=== PATIENT | female | born 1975 | race Caucasian/White ===

== ENCOUNTER → 2020-10-30 09:20 | Outpatient (CLI) | payer OTHER, SELFPAY ==
[2020-10-30 18:57] LABS: SARS-CoV-2 RNA PCR Negative
== END ==
PROVIDERS: PCP Family Medicine; Visit Provider Physician Assistant
DX: R05 Cough (principal); Z20.822 Contact with and (suspected) exposure to COVID-19
CPT/HCPCS: C9803; U0003; U0005

== ENCOUNTER 2024-08-30 08:22 | Outpatient (CLI) | payer OTHER, SELFPAY ==
--- NOTE | ~2024-08-30 | MM_ITS ---
EXAMINATION: MM screening aneudy BI w jesus HISTORY: Screening mammogram TECHNIQUE: Craniocaudal and mediolateral oblique 3-D tomosynthesis images were obtained and synthetic 2-D images were generated. CAD analysis was submitted and interpreted. COMPARISON: No prior mammogram is available for comparison at this institution. BREAST PARENCHYMAL COMPOSITION:Dense: The breasts are heterogeneously dense, which may obscure small masses. FINDINGS: No suspicious mass, calcification, or architectural distortion are identified in either magalys ast to suggest malignancy. There has been no suspicious interval change. IMPRESSION: No mammographic evidence of malignancy. Recommend routine screening mammography in one year. BI-RADS Category 1: Negative Reviewed, dictated and finalized at location .
--- OUTSIDE RECORDS SUMMARY | 2024-08-30 08:29 | XMS_ITS | Clinical Summary ---
Author Organization [address] Address [address] [place] [address] Care Team Providers Care Small Animal Caretaker Name Role Phone Masood Jhaveri MD Primary Care Provider [phone] Allergies No known active allergies Medications SUMAtriptan (IMITREX) 50 mg tabletIndications :Migraine Take 1 tablet (50 mg total) by mouth once as needed for migraine May repeat after 2 hours. 27 tablet 4 024 Active estradioL (VIVELLE-DOT) 0.05 mg/24 hr APPLY 1 PATCH TOPICALLY TWICE A WEEK 024 Active progesterone (PROMETRIUM) 200 mg capsule Take 1 capsule (200 mg total) by mouth daily 025 Active azelastine (OPTIVAR) 0.05 % ophthalmic solutionIndicatio ns:Allergic Conjunctivitis Administer 1 drop into both eyes 2 (two) times a day 6 mL 1 025 Active Additional Information Patient not taking.Reported on 08/13/2024 venlafaxine XR (EFFEXOR-XR) 75 mg 24 hr capsule Take 1 capsule (75 mg total) by mouth daily Take with food. 90 capsule 4 025 2025 Active topiramate (TOPAMAX) 25 mg tabletIndications :Hemiplegic migraine without status migrainosus, not intractable Take 2 tablets (50 mg total) by mouth daily 180 tablet 3 025 2024 Discontinued Active Problems Problem Noted Date Diagnosed Date Acute bilateral low back pain without sciatica 0 04/15/2024 Assessment & Plan (04/15/2024 2:59 PM LIFE SKILLS INSTRUCTOR): Patient reports some low back pain; started after playing pickleball; patient also reports increased physical activity including high-intensity activities Patient reports symptoms are intermittent, but has some numbness and weakness in right leg occasional episodes of left leg Physical exam generally normal except for changes and tandem gait Would recommend continued home exercises including stretching; if no improvement, will evaluate for need for imaging and possible physical Trauma in childhood 08/28/2023 Assessment & Plan (10/31/2023 9:00 AM CDT): Has been working with a counselor Has been getting relief with counseling Has been continuing to work through childhood trauma Assessment & Plan (08/28/2023 9:08 AM CDT): Has unresolved trauma from childhood States she had constant trauma from 0-10 Using food as a comfort Discussed speaking with counselor; gave list of counselors Will have AZIZA Santiago reach out to patient Perimenopause 09/12/2022 Assessment & Plan (08/13/2024 4:30 PM CDT): Stable, has some perimenopausal symptoms; follows with gynecology for management of hormone replacement therapy Assessment & Plan (09/12/2022 4:33 PM CDT): Patient reports perimenopausal symptoms started about 4-5 months ago; primary symptom has been increased nausea Menstrual cycle stopped about 4-5 months ago; patient following with OB Gyne for management Menstrual migraine without s tatus migrainosus, not intractable 09/01/2021 Assessment & Plan (08/13/2024 4:30 PM CDT): Not well controlled; continues to have regular headaches; patient reports some brain fog, fatigue, worse since starting topiramate Will discontinue topiramate; start venlafaxine 75 mg daily; reassess in 2 months Assessment & Plan (04/15/2024 2:59 PM LIFE SKILLS INSTRUCTOR): Stable, generally well controlled with current medication, continue HRT Continue sumatriptan 50 mg p.r.n., Topamax 25 mg Assessment & Plan (09/12/2022 4:32 PM CDT): Stable, well controlled; patient reports no migraines since starting menopause 4-5 months ago Continue to monitor, no medications needed at this time Assessment & Plan (04/15/2022 1:04 PM LIFE SKILLS INSTRUCTOR): Continues to have migraines with Los menstrual cycles; no relief with Excedrin Start sumatriptan 25 mg p.r.n. Assessment & Plan (09/01/2021 8:31 AM CDT): New onset, may be related to dietary changes (low carbohydrate) vs hormone induced -will give trial of increasing carbohydrates prior to menstrual cycle -Excedrin Migraine prior to menstrual cycle Class 1 obesity due to exces s calories without serious comorbidity with body mass index (BMI) of 32.0 to 32.9 in adult 03/04/2021 Assessment & Plan (08/13/2024 4:30 PM CDT): Stable, no major changes; encourage regular physical activity; patient reports some fatigue, may be side effects from medication Will adjust medications Patient is counseled to work on weight loss through dietary and activity changes. Patient is encouraged to decrease caloric intake through portion control, choosing lower calorie foods, and targeting 5-6 servings of vegetables and fruit per day. Patient is encouraged to maintain or target a minimum of 30 minutes moderate intensity exercise 5 days per week. Assessment & Plan (05/21/2024 9:19 PM CDT): Generally stable, no major changes, encouraged continued management of weight through diet and physical activity Assessment & Plan (09/12/2022 4:33 PM CDT): Well controlled, improving; patient continues to work on weight loss; following healthy diet plan; exercising, high-intensity training 3 times per week Assessment & Plan (09/01/2021 8:32 AM CDT): Improving, patient has been working dietary changes, watching portions and carbohydrate intake -continue to encourage appropriate dietary and activity changes for health Assessment & Plan (03/04/2021 2:02 PM LIFE SKILLS INSTRUCTOR): Stable, improving; patient reports she is generally active, working on dietary changes to continue with weight loss; has had significant weight loss in the past year Encouraged patient to continue with general exercise focusing on low-impact exercises given excess weight; will continue to monitor symptoms of left hip pain as well as numbness in length, hip pain may be due to excessive stress verses labral tear If pain continues after weight loss, or worsens will re-evaluate and get MRI Left hip pain 03/03/2021 Assessment & Plan (09/01/2021 8:31 AM CDT): Stable, improving Assessment & Plan (03/04/2021 2:02 PM LIFE SKILLS INSTRUCTOR): Unclear etiology; may be labral tear verses arthritis versus muscle strain from overuse injuries Will continue to monitor if pain worsens or does not respond to weight loss, would consider getting x-ray and MRI as necessary Abnormal glucose tolerance test (GTT) 07/06/2013 Assessment & Plan (09/12/2022 4:34 PM CDT): Most recent glucose tolerance was within normal limits Vitamin B-complex deficiency 07/06/2013 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 Assessment & Plan (05/21/2024 9:19 PM CDT): Continues to have headaches, even with hormone therapies; will increase topiramate to 50 mg daily; may consider venlafaxine as alternatives given perimenopausal symptom relief Continue topiramate 50 mg daily, sumatriptan 50 mg p.r.n.; follow-up with Obstetrics Gynecology for management of hormone therapy Assessment & Plan (10/31/2023 9:04 AM CDT): Chronic, stable Getting relief with topiramate Assessment & Plan (08/28/2023 9:06 AM CDT): Chronic, not well controlled Continues to have at least 1 migraine per week; taking 12 Imitrex a month Is working on mitigating stressors Start Topiramate 25 mg daily; continue Imitrex as needed Follow up 2 months Assessment & Plan (05/31/2023 1:03 PM CDT): Not well controlled; increased in frequency; no getting about 4 per month May be caused by stressors No major side effects from medication Continue sumatriptan 50 mg p.r.n. for headaches Iron deficiency anemia 07/06/2013 Assessment & Plan (05/21/2024 9:19 PM CDT): Last labs within normal limits; will continue to monitor CBC and iron profile Assessment & Plan (09/12/2022 4:33 PM CDT): Well controlled, most recent CBC demonstrated normal H&H, MCV and normal range with low MCH Continue to monitor given no longer having menstrual cycles, likely will not need iron supplementation Assessment & Plan (09/01/2021 8:32 AM CDT): Low normal Hgb, low MCV; will recheck CBC today to ensure not worsening premenstrual symptoms -contiune multivitamin with iron Encounters Date Type Department Care Team Description 08/13/2024 9:00 AM CDT Office Visit [facility] [address] [place] [address] Masood Jhaveri MD Menstrual migraine without status migrainosus, not intractable (Primary Dx); Colon cancer screening; Encounter for screening mammogram for malignant neoplasm of breast; Class 1 obesity due to excess calories without serious comorbidity with body mass index (BMI) of 32.0 to 32.9 in adult; Perimenopause 08/13/2024 Results [facility]-Up [facility] [address] [phone] Masood Jhaveri MD Lipid panel, CBC with auto differential, Comprehensive metabolic panel, Additional followed-up results: 2 08/07/2024 8:25 AM CDT Lab [facility] [address] [place] [address] Iron deficiency anemia due to chronic blood loss 06/14/2024 3:45 PM CDT Office Visit [facility] Primary Care at [address] [phone] Masood Jhaveri MD Allergic conjunctivitis of both eyes (Primary Dx) from Last 3 Months Immunizations Immunization Administration Dates Next Due Influenza, Unspecified 05/12/2024(Deferr ed: Patient Refused),10/26/2023(Deferred: Patient Refused),05/24/2023(Deferred: Patient Refused),12/22/2022(Deferred: Patient Refused),12/07/2022(Deferred: Patient Refused),11/20/2022(Deferred: Patient Refused),10/21/2022(Deferred: Patient Refused),11/20/2021(Deferred: Patient Refused),03/03/2021(Deferred: Patient Refused),02/21/2020(Deferred: Patient Refused) Surgical History Surgery Date Site/Laterality Comments ENDOMETRIAL ABLATION 02/20/2009 - 02/19/2010 SECTION 02/20/2001 - 02/19/2002 SECTION 02/20/1999 - 02/20/2000 SECTION 02/20/1997 - 02/19/1998 Medical History Medical History Date Comments No pertinent past medical history Arthritis 03/2017 Family History Medical History Relation Name Comments Liver cancer Father Lung cancer Father Mental illness Mother Salina Tadeo No Known Problems Sister Relation Name Status Comments Father (Age 75) Mother Salina Tadeo Other Sister Alive Social History Tobacco Use Types Packs/Day Years Used Date Smoking Tobacco: Never Smokeless Tobacco: Never Tobacco Cessation:Counseling Given: Not Answered Alcohol Use Standard Drinks/Week Comments No 0 (1 standard drink = 0.6 oz pur e alcohol) AUDIT-C Answer Date Recorded Q1: How often do you have a drink containing alc ohol? Never 03/03/2021 Average Number of Drinks Not on file 022 Q3: How often do you have si x or more drinks on one occasion? Never 03/03/2021 PHQ-2 Answer Date Recorded PHQ-2 Total Score (If total score is 3 or more points, staff should administer the PHQ-9) 0 08/13/2024 Comments No Sex and Gender Information Value Date Recorded Sex Assigned at Not on file Legal Sex Female 7:25 PM LIFE SKILLS INSTRUCTOR Gender Identity Not on file Sexual Orientation Not on file Obstetrics History Para Term AB IAB SAB Ectopic Multiple Livin g Live Births 3 3 3 Date Outcome GA Total Labor Labor/2nd/3rd Weight Sex Type Anes PTL Gisel A1 A5 Name Clin Term Term Term Last Filed Vital Signs Vital Sign Reading Time Taken Comments Blood Pressure 120/80 08/13/2024 8:46 AM CDT Pulse 68 08/13/2024 8:46 AM CDT Temperature 36.6 C (97.9 F) 08/13/2024 8:46 AM CDT Respiratory Rate 18 08/13/2024 8:46 AM CDT Oxygen Saturation 98% 08/13/2024 8:46 AM CDT Inhaled Oxygen Concentration - - Weight 99.3 kg (219 lb) 08/13/2024 8:46 AM CDT Height 170.2 cm (5' 7) 08/13/2024 8:46 AM CDT Body Mass Index 34.3 08/13/2024 8:46 AM CDT Plan of Treatment Health Maintenance Due Date Last Done Comments Cervical Cancer Screening 1975 Colon Cancer Screening-DNA Stool 1975 08/22/2024 DTaP/Tdap/Td Vaccine (1 - Tdap) 10/22/1986 Regular Well Visit/Exam 18-64 10/22/1993 Breast Cancer Screening-Mammogram 09/08/2022 09/08/2021 Covid-19 Vaccine ( season) 2023 06/09/2020, 05/19/2020 Influenza Vaccine (Season Ended) 2024 Depression Screening 08/13/2025 08/13/2024, 10/31/2023, 08/28/2023, Additional history exists Hepatitis B Screening Completed 08/22/2023 Hepatitis C Screening Completed 08/22/2023 Pneumococcal vaccine <65 Aged Out No longer eligible based on patient's age to complete this topic Procedures Procedure Name Priority Date/Time Associated Diagnosis Comments STOOL DNA COLOGUARD Routine 08/22/2024 6:44 AM CDT Colon cancer screening EGFR Routine 08/07/2024 8:38 AM CDT Iron deficiency anemia due to chronic blood loss DIFFERENTIAL AUTO Routine 08/07/2024 8:3 8 AM CDT Iron deficiency anemia due to chronic blood loss COMPREHENSIVE METABOLIC PANEL Routine 08/07/2024 8:38 AM CDT Iron deficiency anemia due to chronic blood loss CBC WITH AUTO DIFFERENTIAL Routine 08/07/2024 8:38 AM CDT Iron deficiency anemia due to chronic blood loss LIPID PANEL Routine 08/07/2024 8:38 AM CDT Iron deficiency anemia due to chronic blood loss HEPATITIS C ANTIBODY Routine 08/22/2023 8:34 AM CDT Encounter for hepatitis C screening test for low risk patient SCREENING MAMMOGRAM BILATERAL W AVINASH Schedule Routine, Read Routine (OP Routine) 09/08/2021 1:18 PM CDT Encounter for screening mammogram for malignant neoplasm of breast from Last 3 Months or Most Recently Relevant to Health Maintenance Results * Stool DNA - Cologuard (08/22/2024 6:44 AM CDT) Stool DNA - Cologuard Negative Negative [facility] (CLIA #:[id number]) Comment: The Cologuard (TM) test was performed on this specimen. NEGATIVE TEST RESULT. A negative Cologuard result indicates a low likelihood that a colorectal cancer (CRC) or advanced adenoma (adenomatous polyps with more advanced pre-malignant features) is present. The chance that a person with a negative Cologuard test has a colorectal cancer is less than 1 in 1500 (negative predictive value >99.9%) or has an advanced adenoma is less than 5.3% (negative predictive value 94.7%). These data are based on a prospective cross-sectional study of 10,000 individuals at average risk for colorectal cancer who were screened with both Cologuard and colonoscopy. (Duy Gutierrez al, N Engl J Med 2014;370(14):1286- 1297) The normal value (reference range) for this assay is negative. COLOGUARD RE-SCREENING RECOMMENDATION: Periodic colorectal cancer screening is an important part of preventive healthcare for asymptomatic individuals at average risk for colorectal cancer. Following a negative Cologuard result, the [place] [employer] and U.S. Multi-Society Task Force screening guidelines recommend a Cologuard re-screening interval of 3 years. References: [place] [employer] Guideline for Colorectal Cancer Screening: https://www.cancer.org/cancer/qefyd-kjaqug-nthdmg/rwfpollye-ljuncksna-pgrdqoi/ac s-rec ommendations.html.; Kana DK, Annie CR, Kristin MatosK, Colorectal Cancer Screening: Recommendations for Physicians and Patients from the U.S. Multi-Society Task Force on Colorectal Cancer Screening , Am J Gastroenterology 2017; 112:6860-4264. TEST DESCRIPTION: Composite algorithmic analysis of stool DNA-biomarkers with hemoglobin immunoassay. Quantitative values of individual biomarkers are not reportable and are not associated with individual biomarker result reference ranges. Cologuard is intended for colorectal cancer screening of adults of either sex, 45 years or older, who are at average-risk for colorectal cancer (CRC). Cologuard has been approved for use by the U.S. FDA. The performance of Cologuard was established in a cross sectional study of average-risk adults aged 50-84. Cologuard performance in patients ages 45 to 49 years was estimated by sub-group analysis of near-age groups. Colonoscopies performed for a positive result may find as the most clinically significant lesion: colorectal cancer [4.0%], advanced adenoma (including sessile serrated polyps greater than or equal to 1cm diameter) [20%] or non- advanced adenoma [31%]; or no colorectal neoplasia [45%]. These estimates are derived from a prospective cross-sectional screening study of 10,000 individuals at average risk for colorectal cancer who were screened with both Cologuard and colonoscopy. (Duy Gutierrez al, N Engl J Med 2014;370(14):3946-1110.) Cologuard may produce a false negative or false positive result (no colorectal cancer or precancerous polyp present at colonoscopy follow up). A negative Cologuard test result does not guarantee the absence of CRC or advanced adenoma (pre-cancer). The current Cologuard screening interval is every 3 years. ([place] [employer] and U.S. Multi-Society Task Force). Cologuard performance data in a 10,000 patient pivotal study using colonoscopy as the reference method can be accessed at the following location: www.[employer].com.com/results. Additional description of the Cologuard test process, warnings and precautions can be found at www.[facility].com. Stool 08/22/2024 6:44 AM CDT 08/24/2024 10:04 AM CDT us Masood Jhaveri MD LAB BODY FLUIDS AND STOOL S ORDERABLES Final Result [facility] (CLIA #:[id number]) [place] [address] * eGFR (08/07/2024 8:38 AM CDT) eGFR >90 >=60 mL/min/1. 73 m2 Comment: Interpretive Data Reference Interval Normal >/= 90 mL/min/1.73m2 Mildly decreased* 60 - 89 mL/min/1.73m2 Mildly to moderately decreased 45 - 59 mL/min/1.73m2 Moderately to severely decreased 30 - 44 mL/min/1.73m2 Severely decreased 15 - 29 mL/min/1.73m2 Kidney Failure < 15 mL/min/1.73m2 *Relative to young adult level Estimated glomerular filtration rate is determined by the 2020 CKD-EPI equation recommended by the National Kidney Foundation (A Unifying Approach to GFR Estimation: Recommendations of the NKF-ASK Task Force on Reassessing the Inclusion of Race in Diagnosing Kidney Disease, JASN 2020). The CKD-EPI equation should not be used for patients with unstable renal function and has not been validated in children and those over 70. Current interpretive data was last reviewed 2020. Testing performed by: [facility], [address] [place] [address], [place]., [address] Blood 08/07/2024 8:38 AM CDT 08/07/2024 3:56 PM CDT us Masood Jhaveri MD LAB BLOOD ORDERABLES Shaina alcaraz Result [facility] ([place]) 1 [facility] Department [place] [address] * Differential, auto (08/07/2024 8:38 AM CDT) Neutrophil abs 2.29 1.50 - 6.50 K/cumm Comment:Testing performed by : [facility], [address] [place] [address]., [address] Imm gran abs 0.01 0.00 - 0.10 K/cumm [facility] ([place]) Comment:Testing performed by : [facility], [address] [place] [address], [address] Lymphocyte abs 1.08 0.80 - 3.30 K/cumm [facility] ([place]) Comment:Testing performed by : [facility], [address] [place] [address]., [address] Monocyte abs 0.30 0.20 - 0.80 K/cumm [facility] ([place]) Comment:Testing performed by : [facility], [address] [place] [address]., [address] Eosinophil abs 0.14 0.00 - 0.50 K/cumm [facility] ([place]) Comment:Testing performed by : [address] [address] Basophil abs 0.04 0.00 - 0.10 K/cumm [facility] ([place]) Comment:Testing performed by : [address] [address] Neutrophil pct 59.3 % [facility] ([place]) Comment: Interpretive Data Percent cell count reference ranges are not reported, since discordance with absolute values may lead to misinterpretation of CBC data. Current Interpretive Data was last revised on 2017. Testing performed by: [address] [address] Imm gran pct 0.3 % [facility] ([place]) Comment: Interpretive Data Percent cell count reference ranges are not reported, since discordance with absolute values may lead to misinterpretation of CBC data. Current Interpretive Data was last revised on 2017. Testing performed by: [facility], [address] [place] [address]., [address] Lymphocyte pct 28.0 % [facility] ([place]) Comment: Interpretive Data Percent cell count reference ranges are not reported, since discordance with absolute values may lead to misinterpretation of CBC data. Current Interpretive Data was last revised on 2017. Testing performed by: [facility], [address] [place] [address]., [address] Monocyte pct 7.8 % [facility] ([place]) Comment: Interpretive Data Percent cell count reference ranges are not reported, since discordance with absolute values may lead to misinterpretation of CBC data. Current Interpretive Data was last revised on 2017. Testing performed by: [facility], [address] [place] [address]., [address] Eosinophil pct 3.6 % [facility] (YUAN) Comment: Interpretive Data Percent cell count reference ranges are not reported, since discordance with absolute values may lead to misinterpretation of CBC data. Current Interpretive Data was last revised on 2017. Testing performed by: [facility], [address] [place] [address]., [address] Basophil pct 1.0 % [facility] ([place]AN) Comment: Interpretive Data Percent cell count reference ranges are not reported, since discordance with absolute values may lead to misinterpretation of CBC data. Current Interpretive Data was last revised on 2017. Testing performed by: [address] [id number] Blood 08/07/2024 8:38 AM CDT 08/07/2024 3:46 PM CDT us Masood Jhaveri MD LAB BLOOD ORDERABLES Shaina alcaraz Result [facility] ([place]) 1 [facility] Department [place] [address] * (ABNORMAL) CBC with auto differential (08/07/2024 8:38 AM CDT) WBC 3.86 3.80 - 9.90 K/cumm Comment:Testing performed by : [facility], [address] [place] [address], [address] Hgb 13.4 11.9 - 15.5 g/dL [facility] ([place]) Comment:Testing performed by : [facility], [address] [place] [address], [address] Hct 43.5 35.6 - 45.5 % [facility] ([place]) Comment:Testing performed by : [facility], [address] [place] [address], [address] Plt 216 150 - 400 K/cumm [facility] ([facility]) Comment:Testing performed by : [address], [address] MPV 11.4 9.1 - 12.3 fL [facility] ([facility]) Comment:Testing performed by : [address], [address] RBC 4.73 3.90 - 5.20 M/cumm [facility] ([place]) Comment:Testing performed by : [address], [address] MCV 92.0 81.3 - 96.4 fL [facility] ([place]) Comment:Testing performed by : [address], [address] MCH 28.3 27.1 - 33.3 pg [facility] ([place]) Comment:Testing performed by : [address], [address] MCHC 30.8(L) 32.3 - 35.7 g/dL [facility] ([place]) Comment:Testing performed by : [address], [address] RDW CV 15.5(H) 11.1 - 14.9 % [facility] ([place]) Comment:Testing performed by : [address], [address] RDW SD 52.8(H) 35.7 - 48.1 fL [facility] ([place]) Comment:Testing performed by : [address], [address] NRBC abs 0.00 0.00 - 0.01 K/cumm [facility] ([place]) Comment:Testing performed by : [facility], [address] [place] [address]., [address] Blood 08/07/2024 8:38 AM CDT 08/07/2024 3:46 PM CDT us Masood Jhaveri MD LAB BLOOD ORDERABLES Shaina lissa Result [facility] ([place]) 1 [facility] Department [place] [address] * Lipid panel (08/07/2024 8:38 AM CDT) Cholesterol 181 30 - 199 mg/dL Comment: Interpretive Data Ages < or = 19 years Acceptable: <170 mg/dL Borderline high: 170-199 mg/dL High: >or= 200 mg/dL Ages > or = 20 years Desirable: <200 mg/dL Borderline high: 200-239 mg/dL High: >or= 240 mg/dL Literature References: 1. Expert Panel on Integrated Guidelines for Cardiovascular Health and Risk Reduction in Children and Adolescents. Pediatrics 2011;128:S213 2. NCEP Expert Panel. Circulation 2004;110:227 Current Interpretive Data was last revised on 2017. Testing performed by: [facility], [address] [place] [address]., [address] Triglycerides 63 <=149 mg/dL [facility] ([place]) Comment: Interpretive Data Ages < or = 9 years Acceptable: <75 mg/dL Borderline high: 75-99 mg/dL High: >or= 100 mg/dL Ages 10 to 20 years Acceptable: <90 mg/dL Borderline high: 90-129 mg/dL High: >or= 130 mg/dL Ages > or = 20 years Desirable: <150 mg/dL Borderline high: 150-199 mg/dL High: 200-499 mg/dL Very high: >or= 499 mg/dL Literature References: 1. Expert Panel on Integrated Guidelines for Cardiovascular Health and Risk Reduction in Children and Adolescents. Pediatrics 2011;128:S213 2. NCEP Expert Panel. Circulation 2004;110:227 Current Interpretive Data was last revised on 2017. Testing performed by: [facility], [id number] [place] [address]., [id number] HDL 74 >=40 mg/dL WILLA Crane (YUAN) Comment: Interpretive Data Ages < or = 19 years Acceptable: >45 mg/dL Borderline low: 40-45 mg/dL Low: <40 mg/dL Ages > or = 20 years Desirable: >or= 60 mg/dL Low: <40 mg/dL Literature References: 1. Expert Panel on Integrated Guidelines for Cardiovascular Health and Risk Reduction in Children and Adolescents. Pediatrics 2011;128:S213 2. NCEP Expert Panel. Circulation 2004;110:227 Current Interpretive Data was last revised on 2017. Testing performed by: [facility], [address] [place] [address]., [address] LDL, calculated 95 <=129 mg/dL WILLA ERNANDEZ (YUAN) Comment: Interpretive Data Ages < or = 19 years Acceptable: <110 mg/dL Borderline high: 110-129 mg/dL High: >or= 130 mg/dL Ages > or = 20 years Optimal: <100 mg/dL Near optimal: 100-129 mg/dL Borderline high: 130-159 mg/dL High: >160 mg/dL Calculated using the Dariusz LDL-C estimating equation. This equation was implemented on 2023. Prior to this date LDL-C was estimated using the Friedewald equation. Literature References: 1. Expert Panel on Integrated Guidelines for Cardiovascular Health and Risk Reduction in Children and Adolescents. Pediatrics 2011;128:S213 2. NCEP Expert Panel. Circulation 2004;110:227 3. Dariusz Fitzgerald et al. KRISTA Cardiol. 2019June 20;5(5):540-548. doi: 10.1001/jamacardio.2020.0013 Current Interpretive Data was last revised on 2023. Testing performed by: [facility], [address] [place] [address]., [address] Non-HDL Cholesterol 107 mg/dL WILLA ERNANDEZ (YUAN) Comment: Interpretive Data Ages < or = 19 years Acceptable: <120 mg/dL Borderline high: 120-144 mg/dL High: >145 mg/dL Ages > or = 20 years When triglycerides are >200 mg/dL, Non-HDL cholesterol is a secondary target of therapy with treatment goals that are 30 mg/dL greater than the LDL cholesterol target. Literature References: 1. Expert Panel on Integrated Guidelines for Cardiovascular Health and Risk Reduction in Children and Adolescents. Pediatrics 2011;128:S213 2. NCEP Expert Panel. Circulation 2004;110:227 Current Interpretive Data was last revised on 2017. Testing performed by: [facility], [address] [place] [address]., [address] Chol/HDL ratio 2 [facility] (YUAN) Comment:Testing performed by : [address] [address] Blood 08/07/2024 8:38 AM CDT 08/07/2024 3:46 PM CDT Masood Jhaveri MD LAB BLOOD ORDERABLES Shaina alcaraz Result WILLA ERNANDEZ (YUAN) 1 [facility] Department [place] [address] * (ABNORMAL) Comprehensive metabolic panel (08/07/2024 8:38 AM CDT) Sodium 139 135 - 145 mmol/L Comment:Testing performed by : [address] [address] Potassium, pl 4.0 3.3 - 4.9 mmol/L [facility] (YUAN) Comment:Testing performed by : [address] [address] Chloride 107 97 - 110 mmol/L [facility] (YUAN) Comment:Testing performed by : [address] [address] CO2 23 22 - 32 mmol/L [facility] ([place]AN) Comment:Testing performed by : [address] [address] Anion gap 9 2 - 15 mmol/L [facility] (YUAN) Comment:Testing performed by : [address], [address] BUN 14 6 - 25 mg/dL [facility] ([place]UAN) Comment:Testing performed by : [address], [address] Creatinine 0.71 0.60 - 1.10 mg/dL [facility] ([place]UAN) Comment:Testing performed by : [address] [address] Glucose 87 70 - 199 mg/dL [facility] (YUAN) Comment: Interpretive Data Fasting glucose >/= 126 mg/dl is diagnostic for diabetes. Fasting is defined as no caloric intake for at least 8 hours. Fasting glucose between 100 mg/dl to 125 mg/dl is diagnostic of prediabetes. In a patient with classic symptoms of hyperglycemia or hyperglycemic crisis, a random glucose >/= 200 mg/dl is diagnostic for diabetes. In the absence of unequivocal hyperglycemia, results should be confirmed by repeat testing. The classification and Diagnosis of Diabetes Diabetes Care 2021; 46: S19-S40. Current interpretive data was last revised 2022. Testing performed by: [address], [address] Calcium 9.4 8.5 - 10.3 mg/dL [facility] ([place]UAN) Comment:Testing performed by : [address], [address] Bilirubin, total 0.3 0.1 - 1.2 mg/dL [facility] ([place]AN) Comment:Testing performed by : [address] [address] Protein, pl 7.0 6.5 - 8.5 g/dL [facility] (YUAN) Comment:Testing performed by : [address], [address] Albumin 4.3 3.5 - 5.0 g/dL [facility] ([place]AN) Comment:Testing performed by : [address], [address] Alk phos 39(L) 40 - 130 Units/L [facility] (YUAN) Comment:Testing performed by : [address], [address] ALT 34 7 - 45 Units/L [facility] (YUAN) Comment:Testing performed by : [address], [address] AST 28 10 - 45 Units/L [facility] (YUAN) Comment:Testing performed by : [address], [address] Blood 08/07/2024 8:38 AM CDT 08/07/2024 3:46 PM CDT us Masood Jhaveri MD LAB BLOOD ORDERABLES Shaina l Result Performing Organization Address City/[facility]/ZIP Co de Phone Number WILLA ERNANDEZ UVALDA) 1 [facility] [place] [address] * Hepatitis C antibody Blood (08/22/2023 8:34 AM CDT) Hep C Ab Nonreactive Nonreactive Comment: Interpretive Data Nonreactive: Antibodies to HCV not detected. Does NOT exclude the possibility of recent exposure to HCV. Equivocal: Equivocal for HCV antibodies. Supplemental molecular testing will be automatically performed to determine infection status in accordance with current CDC screening recommendations. Reactive: Positive for HCV antibodies. This may represent current or past HCV infection. Supplemental molecular testing will be automatically performed to determine current infection status in accordance with current CDC screening recommendations. Interpretive data was last revised on 2019. Testing performed by: [facility], [address] [place] [address]., [address] Blood 08/22/2023 8:34 AM CDT 08/22/2023 12:49 PM CDT us Jenni Arango NP LAB MICROBIOLOGY - GENERAL ORDER MARIELA Final Result Performing Organization Address [facility] Co de Phone Number WILLA [facility] UVALDA) [address] [place] [address] [place] [address] * Screening Mammogram Bilateral W Avinash (09/08/2021 1:18 PM CDT) Anatomical Region Laterality Modality Breast Bilateral Mammography 09/08/2021 1:27 PM CDT Impressions 09/08/2021 1:27 PM CDT There is no mammographic evidence of malignancy. A 1 year screening mammogram is recommended. BI-RADS: 1 - Negative. The patient has been or will be contacted. The patient will be entered into a reminder system with a target due date of 1 year for her next mammogram. Electronically signed by: PAGE Guerin 09/08/2021 1:27 PM CDT EXAMINATION: SCREENING MAMMOGRAM BILATERAL W AVINASH ORDERING HEALTHCARE PROVIDER: MASOOD JHAVERI HISTORY: Routine screening mammography. COMPARISON: This is patient's baseline mammogram. TECHNIQUE: CC and MLO views of both breasts were obtained with digital technique using digital breast tomosynthesis with C view. Computer aided detection was utilized. FINDINGS: DENSITY: The breasts are heterogeneously dense, which may obscure small masses. BREASTS: There is no suspicious finding either breast on mammogram. us Masood Jhaveri MD IMG MAMMO PROCEDURES Shaina l Result from Last 3 Months or Most Recently Relevant to Health Maintenance Insurance [facility] [id number] Care Teams Small Animal Caretaker Relationship Specialty Start Date End Date Masood Jhaveri MD [address] [place] [address] PCP - General 03/03/21
--- OUTSIDE RECORDS SUMMARY | 2024-08-30 08:29 | XMS_ITS | Data Portability ---
Author Organization [facility] Address [address] [place] [address] [place] [address] Care Team Providers Care Dental Office Assistant Name Role Phone JAIRON JHAVERI Primary Care Provider Assessment Encounter Date Assessment Date Assessment LastModified by Organization Details LastModified Time 06/08/2020 06/08/2020 Annual gynecological exam performed. Patient will come back in a year unless there are new symptoms. Not available 06/08/2020 10:09:02 08/16/2022 08/16/2022 Annual gynecological exam performed. Patient will come back in a year unless there are new symptoms. [email or web address] Not available 08/16/2022 09:48:11 Plan of Treatment Reminders Order Date Submit Date Provider Last Modified By Organization Details Last Modified Time Details Appointments [facility]OM[facility]-EST 2024 08:45A M AYAAN Neff Not available Not available Not available Lab None recorded. Referral None recorded. Procedures None recorded. Surgeries None recorded. Imaging MAMMO, screening , digital, bilateral 2024 025 [email or web address] [facility], [address], [place], [address], 05/01/2024 11:23:41 MAMMO, screening , digital, bilateral 2023 024 JOSEPH [facility], [address], [place], [address], 06/23/2024 05:01:36 Medication Orders Vivelle-D ot 0.05 mg/24 hr transderm al patch 2024 025 [facility], [place], [address], 03/13/2024 10:26:58 progester one micronize d 200 mg capsule 2024 025 [facility], [place], [address], 03/13/2024 10:26:59 progester one micronize d 200 mg capsule 2023 024 [facility] [address], [place], [address], 12/13/2023 10:30:17 Vivelle-D ot 0.05 mg/24 hr transderm al patch 2023 024 [facility] [address], [place], [address], 12/13/2023 10:30:16 Patient TargetsNo targets recorded. Patient InstructionsNo instructions recorded. Reason for Referral None Reported. 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 Order ing Locat ion: [place] [facility] Recei jeronimo: 06/09 1021 First Scree n: Shaziaa daisy ak, Olga ay, CT Speci men: Scree dayna Pap - Image d, Cervi x STATE MENT OF ADEQU ACY: Satis facto ry for evalu ation Trans forma tion zone compo nent prese nt FINAL DIAGN OSIS: Negat naomie for Intra epith elial Lesio n or Juan A mixon ignacio d by Rachel blackburn, Olga jauregui, CT on 2020 at 5:23 PM ----- ----- ----- ----- ----- ----- ----- ----- ----- ----- ----- ----- ----- ----- ----- ----- ----- ---- HPV RESUL TS: HPV mRNA E6/E7 : No HPV mRNA Detec william NOTE: This high risk HPV mRNA assay detec ts fourt een high- risk HPV types (16, 18, 31, 33, 35, 39, 45, 51, 52, 56, 58, 59, 66, 68) witho ut diffe renti ation . CHART ABLE COMME NT: Note: This speci men was revie wed by a Cytot echno logis t and/o r Patho logis t (as indic ated in this repor t) after evalu ation using the Thinp rep Imagi ng Syste m. CLINI STEPHANIE INFOR MATIO N: Menst rual Statu s: LMP (if appli cable ): Clini stephanie Histo ry/Pr eviou s Pap: Type of Neopl jeff (if appli cable ): Other Histo ry: Hormo nehal (if appli cable ): PAP EDUCA NERIS L NOTE: The Pap Test is a scree dayna test with an inher ent false negat naomie rate. Liqui d-bas e sampl ing may decre ase, but will not elimi gonzales, false negat naomie resul ts. A negat naomie resul t does not precl ude the prese nce and/o r devel opmen t of disea se, since the prese nce of abnor mal cells in the sampl e depen ds on the locat ion of the lesio n and sampl ing techn ique. Micah nued regul ar scree dayna is the best metho d of cance r preve ntion . If repor william cytol ogic findi ng do not corre late with physi stephanie and/o r histo rical findi ngs, furth er inves tigat ion is recom dmitry d, as per carson nted. Not Available [facility] (Lab) [address], [place], [address], 06/09/2020 19:31:29 Result Notes None recorded. Problems Name Problem SNOMED Code Status Onset Date Resolution Date Notes Provider Name and Address Organization Details Recorded Time Speciali zed medical examinat ion Completed 201406/08/2020 Gynecolo gical Examinat ion;Kenneth rded Elsewher e: No Locat ion: [facility] S ource: EHR Nsh Teacher gaviota: N Practi ce ID: 0001 Yariel lable Time: 03:00:00 PM Nan Buckner [facility] 10:24:58 Menstrua tion finding Completed 201406/08/2020 Excessiv e or frequent menstrua tion;Rec orded Elsewher e: No Locat ion: [facility] S ource: EHR Nsh Teacher gaviota: N Practi ce ID: 0001 Yariel lable Time: 08:15:00 AM Nan Buckner [facility] 10:24:[address] Concept Completed 201806/08/2020 Encntr for demographic analyst exam (general ) (routine ) w/o abn findings ;Recorde d Elsewher e: No Locat ion: [facility] S ource: EHR Nsh Teacher gaviota: N Practi ce ID: 0001 Yariel lable Time: 01:30:00 PM Nan grider [facility] 10:24:56 Obesity [id number] Completed 201406/08/2020 Obesity; Recorded Elsewher e: No Locat ion: [facility] S ource: EHR Nsh Teacher gaviota: N Practi ce ID: 0001 Yariel lable Time: 03:00:00 PM Nan grider [facility] 10:24:52 Screenin g for malignan t neoplasm of cervix Completed 201406/08/2020 Pap Smear;Pr actice ID: [id number] Nan Padillatz null, [facility] 10:24:54 Problem Notes None recorded. Procedures Surgical History Date Name Laterality Status Provider Name and Address Organization Details Recorded Time 12/13/19 24 Date of Last Pap Smear completed AZAR Lissy [facility] 03/13/2024 09:42:32 02/20/19 05 Endometrial Ablation completed Nan Buckner [facility] 06/07/2020 10:20:21 02/20/19 02 section completed Nanalix Buckner [facility] 06/07/2020 10:20:54 02/20/19 00 section completed [facility] 06/07/2020 10:20:46 02/20/18 98 section completed Nanalix Buckner [facility] 06/07/2020 10:20:39 Imaging Results None recorded. Procedure Notes None recorded. Medical Equipment None Reported. Allergies No known drug allergies Medications Name Sig Start Date Stop Date Status Note LastModified by Organization Details LastModified Time sumatriptan 25 mg tablet 08/16 completed Not Available Not Available Not Available sumatriptan 50 mg tablet TAKE ONE TABLET BY MOUTH AT ONSET OF MIGRAINE. IF SYMPTOMS PERSIST, A SECOND DOSE MAY BE TAKEN IN 2 HOURS. DO NOT EXCEED 2 DOSES IN A 24 HOUR PERIOD, UNLESS OTHERWISE INSTRUCTE D BY YOUR PHYSICIAN active Not Available Not Available No t Available topiramate 25 mg tablet TAKE 1 TABLET BY MOUTH ONCE DAILY active Not Available Not Available No t Available progesteron e micronized 200 mg capsule Take 1 capsule every day by oral route. 2024 active Not Available Not Available Not Avai lable Vivelle-Dot 0.05 mg/24 hr transdermal patch Apply 1 patch twice a week by transderm al route. 2024 active Not Available Not Available Not Avai lable fluticasone propionate 50 mcg/actuati on nasal spray,suspe nsion SHAKE LIQUID AND USE 2 SPRAYS IN EACH NOSTRIL DAILY 08/16 completed Not Available Not Available Not Available ciprofloxac in 0.3 %-dexametha sone 0.1 % ear drops,suspe nsion SHAKE LIQUID AND INSTILL 4 DROPS TO LEFT EAR TWICE DAILY 08/16 completed Not Available Not Available Not Available BinaxNOW COVID-19 Ag Self Test kit TEST DIRECTED TODAY 08/16 completed Not Available Not Available Not Available Vitals Date Recorded Body height Body mass index (BMI) Body weight Systolic And Diastolic Provider Name and Address Organization Details Last Updated DateTime 03/13/2024 167.64 cm 35 kg/m2 01496.54 g 105/70 mm[Hg] AZAR Yuan [facility] 03/13/2024 09:46:21 Date Recorded Systolic And Diastolic Provider Name and Address Organization Details Last Updated DateTime 06/08/2020 134/82 mm[Hg] Ellie Medrano, [facility]- [address], [place], [address], [facility] 06/08/2020 10:42:02 Date Recorded Body height Body mass index (BMI) Body weight Provider Name and Address Organization Details Last Updated DateTime 06/08/2020 167.64 cm 37.5 kg/m2 976630.15 g Rina Shaikh [facility] 06/08/2020 10:09:40 Date Recorded Body height Body mass index (BMI) Body weight Systolic And Diastolic Provider Name and Address Organization Details Last Updated DateTime 08/16/2022 167.64 cm 31.6 kg/m2 45812.1 g 126/78 mm[Hg] Radha Ortez [facility] 08/16/2022 09:48:34 Date Recorded Body height Body mass index (BMI) Body weight Systolic And Diastolic Provider Name and Address Organization Details Last Updated DateTime 12/13/2023 167.64 cm 32.8 kg/m2 86109.25 g 115/71 mm[Hg] Areli Avila [facility] 12/13/2023 09:47:20 Social History Question Answer Notes LastModified by Organizat ion Details LastModified Time Do You Have An Advance Directive? No Information n ot available 06/08/2020 Are You Blind Or Do You Have Difficulty Seeing? No Information not available 06/08/2020 What Is Your Level Of Caffeine Consumption? Moderate Information not available 06/08/2020 How Much Tobacco Do You Chew? None Information not available 06/08/2020 In The 14 Days Before Symptom Onset, Have You Had Close Contact With A Laboratory-confirme d COVID-19 While That Case Was Ill? No Information n ot available 06/08/2020 In The 14 Days Before Symptom Onset, Have You Had Close Contact With A Person Who Is Under Investigation For COVID-19 While That Person Was Ill? No Information not available 06/08/2020 Have You Been To An Area Known To Be High Risk For COVID-19? No Information not available 06/08/2020 Are You Deaf Or Do You Have Serious Difficulty Hearing? No Information not available 06/08/2020 What Type Of Diet Are You Following? SPECIFIC Information n ot available 06/08/2020 What Is The Highest Grade Or Level Of School You Have Completed Or The Highest Degree You Have Received? [id number] Information not available 06/08/2020 Are There Any Guns Present In Your Home? No Information not available 06/08/2020 Do You Use Protection During Sex? No Information not available 06/08/2020 Do You Use Your Seat Belt Or Car Seat Routinely? Yes Information not available 06/08/2020 Do You Have Smoke And Carbon Monoxide Detectors In Your Home? Yes Information not available 06/08/2020 How Much Tobacco Do You Smoke? No Information not available 06/08/2020 Do You Use Sunscreen Routinely? Yes Information not available 06/08/2020 Have You Used IV Drugs? No Information not available 06/08/2020 Sex: Unknown Functional Status Question Answer Note LastModified by Organizat ion Details LastModified Time Do you use any illicit or recreational drugs? No Information not available 06/08/2020 What is your level of alcohol consumption? None Information not available 06/08/2020 Are you able to walk? 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 Moderate Information not available 06/08/2020 Mental Status Question Answer Note LastModified by Organization D etails LastModified Time Do you feel stressed (tense, restless, nervous, or anxious, or unable to sleep at night)? [id number] Information not available 06/08/2020 Family History Relationship Description Onset Age of this Age Resolved Age Notes LastModified by Organization Details LastModified Time Father Malignant neoplasm of lung 70 [email or web address] Not available 2024 09:36:54 Father Hyperlipidem ia [email or web address] Not available 2024 09:36:54 Father Malignant neoplasm of lung [email or web address] Not available 2023 09:34:11 Mother Psychiatric symptom [email or web address] Not available 2024 09:36:55 Sister Psychiatric symptom Not available 2024 09:36:55 Medical History Condition Response Allergies (Food, seasonal, environmental ) N Other Y Blood Transfusion N Drug/Latex Allergies/Reactions N Breast Cancer N Dermatologic Disorders N Lung Disease N Defects or Inherited Disease N Breast Problem N Gestational Diabetes N Hematologic disorders N Anesthesia Complications N History of STI N Deep Vein Thrombosis N Polycystic ovary syndrome N Anxiety Disorder N Autoimmune disease N Arthritis Y Infertility N Polyps N Acid Reflux (GERD) N History of abnormal pap N Cancer N Stroke N Varicosities N Neurologic/Epilepsy N Endometriosis N High Cholesterol N Headaches N Fibromyalgia N Kidney Disease N Heart Problems N Kidney or Bladder Problems N Thyroid Problems N GI Problems N Eating Disorder N Anemia Y Art (IVF or FET) N Psychiatric Illness N Ovarian Cancer N Diabetes N Pulmonary (TB, Asthma) N Hepatitis/Liver Disease N No Past Medical History N Eczema N Urinary Tract Infection N Abuse/Domestic Violence N Asthma N Trauma/Violence N Depression/ depression N Heart Disease N Pre-Eclampsia N Hypertension N Osteoporosis N Thrombophilias N Gynecological History Statement/Question Response Abnormal Pap N Date of Last Mammogram Date of LMP On BCP's at Conception? N N Was last menstrual period normal Y STIs/STDs N HPV Vaccine N Current Control Method Ablation Age at First Child 21 If Post Menopausal, Age at Menopause 45 Date of Last Colonoscopy Sexually Active? Y Menses Monthly N Age of first menstrual cycle 14 Date of Last Pap Smear 12/13/2023 Sexual Problems? N Desired Control Method Partner Vas ectomy Y Obstetrics History GPAL:G 3 P 3 0 0 3 Type Value Full Term 3 Living 3 Total 3 Past Encounters Encounter ID Performer Location Encounter Start Date Encounter Closed Date Diagnosis/Indication Diagnosis SNOMED-CT Code Diagnosis ICD10 Code Diagnosis Note [id number] Ellie Medrano [facility] [address],[place] [address] 06/08/2020 09:51:48 06/08/2020 11:00:45 Gynecologic examination 88046069 Z01.419 Suggested Calcium with Vitamin D 1200-1500m g daily. Patient advised to get an annual flu shot in the fall and she could obtain at [facility] or [facility] care clinic. Also to obtain TDap vaccinatio n if you have not had one in the last 10 years. Recommend yearly mammograms . Encouraged monthly self breast exams. Encourage safe sexual practices, to use condoms and limit partners if not already in a monogamous relationsh ip. Engage in daily exercise of low impact aerobic exercise 45-60 minutes 4-5 times weekly. Avoid tobacco and illicit drugs as well as using moderation with alcohol intake less than 1-2 8 oz beverages daily. This lifestyle behavior pattern will lead to less health conditions and longer life span. If BMI greater than 25 weight watchers or dietary consult advised. All questions have been answered. Patient appears to understand informatio n, but if you have any questions please call or respond to this email. Pap/hpv updated Pap/hpv hx is wnl w/ last 2014 wnl Monogamous Decline std screen No issues or concerns [id number] Ellie Medrano [facility] [address],[facility] [place] [address] 08/16/2022 09:41:07 08/16/2022 10:20:37 Gynecologic examination [id number] Z01.419 Z11.51 Suggested Calcium with Vitamin D 1200-1500m g daily. Patient advised to get an annual flu shot in the fall and she could obtain at [facility] or [facility]. Also to obtain TDap vaccinatio n if you have not had one in the last 10 years. Recommend yearly mammograms . Encouraged monthly self breast exams. Encourage safe sexual practices, to use condoms and limit partners if not already in a monogamous relationsh ip. Engage in daily exercise of low impact aerobic exercise 45-60 minutes 4-5 times weekly. Avoid tobacco and illicit drugs as well as using moderation with alcohol intake less than 1-2 8 oz beverages daily. This lifestyle behavior pattern will lead to less health conditions and longer life span. If BMI greater than 25 weight watchers or dietary consult advised. All questions have been answered. Patient appears to understand informatio n, but if you have any questions please call or respond to this email. Pap/hpv due 2023 Monogamous Decline std screen No issues or concernsGe netic screen discussed [id number] ENDER TUTTLE MD [place] [address] [address] 12/13/2023 09:23:37 12/13/2023 10:37:33 Screening mammography 02717853 Z12.31 Gynecologi c examination 15355069 Z01.419 Well woman care- Cervical cancer screening: Pap smear obtained today, will follow up on the results with the patient as they become available- Breast cancer screening: mammogram ordered- HPV immunizati on: does not qualify- STD testing: declined- hereditary cancer screening: does not qualify for testing Hormone re placement therapy 752624969 Z79.890 - patient reports vaginal dryness, daily nausea, and migraines- hx of menstrual migraines- discussed that given lack of VMS, unclear benefit of MHT for menopausal symptomsWe discussed Menopausal Hormone therapy (MHT) for women with intact uterus with the goals of reliving vaso-motor sx's using estrogen/p rogestin therapy (EPT) using lowest doses for shortest duration in women 40-59yo. Contraindi cations include: Hx of DVT or thrombolic events, High cholestero l, Hx of breast cancer, known CHD, active liver disease, unexplaine d vag bleeding, high risk endometria l cancer, TIA. Side effects can include but are not limited to: Irregular vag bleeding,, breast tenderness , nausea, weight changes, libido changes, nausea. Adverse Rxn: Elevated BP migraine w/ visual changes, breast cancer dx, [place]/stroke, DVT/PE, Endometria l cancer. Please contact office with any new or worsening side effects or adverse reactions. Or if a medical emergency please go to nearest ED/[facility] for further evaluation . [id number] AYAAN Neff [place] [address] [address] 03/13/2024 09:36:47 03/13/2024 10:37:42 Screening for malignant neoplasm of breast 850229679 Z12.39 Hormone re placement therapy 390008286 Z79.890 Doing well and symptoms improvedre fills sent x 12 months - r/b/a reviewedqu estions answered, precaution s discusseds he is aware of need to take progestero ne while on estradiol patchesRTC for WWE or sooner if needed Time spent in visit is a total of 20 mins with at least 50% of visit consisting of counseling and review of plan of care. Health Concerns Section Related Observation LastModified by Organization Detai ls LastModified Time None Recorded Concern Status LastModified by Organization Details LastModified Time None Recorded Advance Directives Directive N: Payers Insurance Date Sequence Insurance Name Policy Number Policy Romero Covered Member ID Romero Member ID Guarantor Name 12/13/2023 1 [facility] [id number] Nan Casey [id number] Nan Casey 12/13/2023 1 [employer] [facility] [id number] Nan Casey [id number] Nan Casey 03/12/2024 1 [employer] [facility] [employer]EF[employer] PLAN Nan Casey [id number] OI Nan Casey Notes Date Note Type Note Provider Name and Address Organization Details Recorded Time 06/08/2020 text/html Annual GYNReport ed bypatient.History: no gynecologic complaints Menstrual cycle:Normal menses (Endo ablation has spotty periods each month.) Urinary symptoms:No hematuria; No incontinence Vulva:No genital lesion Vagina:Normal vaginal discharge Breast:No breast pain; No breast lump; No nipple discharge Current Contraception:Sati sfied with current contraception; Monogamous relationship; Partner had vasectomy Sexual complaints:No sexual complaints; No pain during intercourse; Normal libido Menopausal Symptoms:No menopausal symptoms; Normal vaginal lubrication Psychological symptoms:No depression; No anxiety; No PMDD Preventive measures:Encourage self breast examination; Encourage regular exercise; Encourage no tobacco use; Encourage regular mammograms starting age 40; Needs to schedule mammogram AYAAN Faith- [address], [place], [address], [facility] 06/08/2020 10:44:02 08/16/2022 text/html Annual GYNReport ed bypatient.Menstrua l cycle:Perimenopaus al(Amenorrheic since Ablation) Urinary symptoms:No hematuria; No incontinence Vulva:No genital lesion Vagina:Normal vaginal discharge Breast:No breast pain; No breast lump; No nipple discharge Current Contraception:Sati sfied with current contraception; Partner had vasectomy Sexual complaints:No sexual complaints; No pain during intercourse; Normal libido Menopausal Symptoms:No menopausal symptoms; Normal vaginal lubrication Psychological symptoms:No depression; No anxiety; No PMDD Preventive measures:Encourage self breast examination; Encourage regular exercise; Encourage no tobacco use; Encourage regular mammograms starting age 40; Mammogram performed within the past year AYAAN Faith- [address], [place], [address], [facility] 08/16/2022 10:12:34 12/13/2023 text/html Presents today f or her annual well-woman exam. Denies abnormal vaginal discharge. She is sexually active and denies dyspareunia. She has not noticed any changes or masses in her breasts. Menopausal x1 year. She reports nausea and migraines. Nausea worse in the morning and overnight. Starting daily meds for migraines which have been helping somewhat. She reports hx of menstrual migraines ENDER TUTTLE MD [address], [place], [address], [facility] 12/13/2023 10:35:13 03/13/2024 text/html 48yopresents for HRT med checkdoing well, feels like a whole new personless migraines and nausea, no longer missing workno negative SEneeds screening mammogram order AYAAN Neff [address], [place], [address], [place] [facility] 03/13/2024 10:28:21 OBGyn Episode Ob Episode Information Episode Created Date Number of Fetuses Patient Bloodtype Patient rh Status Prepregnancy Weight lbs Domestic Partner Domestic Partner Phone Father Name Deputy Prosecuting Attorney Status 06/08/19 21 1 CLOSED Fetus Data First Name Last Name Admitted to NICU Weight (g) Sex Living Outcome Pediatric Complications Fetus ID Race Codes Race Delivery Type 4507.34 3704 M Full Term 9192 Repeat Monico Calculation Initial Monico Date Initial Exam Date Initial Exam Provider Initial Ultrasound Date Last Menstrual Period Date Ultra Sound Weeks Gestation 0 Eighteen To Twenty Week Monico Update Ultra Sound Date Fundal Height At Umbil Quickening Date Ultra Sound Latest Weeks Gestation Final Monico Confirmed By Final Monico Confirmed Date Final Monico Date Ultra Sound Latest Days Gestation 0 0 Menstrual History Last Menstrual Date Menses Monthly On Bcp Conception Prior Menses Frequency Hcg Plus Date Menarche Onset Age Delivery Information Delivery Date Delivery Type Labor Anesthesia Weeks Gestation Incision Type Labor Labor Length Hrs Delivered By Post Complications Tubal Sterilization Discharge Date Comments 2 36 labor Discharge Information Feeding Method Contraceptive Method Maternal HG B and HCT Levels Ob Episode Information Episode Created Date Number of Fetuses Patient Bloodtype Patient rh Status Prepregnancy Weight lbs Domestic Partner Domestic Partner Phone Father Name Deputy Prosecuting Attorney Status 06/08/19 21 1 CLOSED Fetus Data First Name Last Name Admitted to NICU Weight (g) Sex Living Outcome Pediatric Complications Fetus ID Race Codes Race Delivery Type 3572.03 7 F Full Term 9190 Primary Monico Calculation Initial Monico Date Initial Exam Date Initial Exam Provider Initial Ultrasound Date Last Menstrual Period Date Ultra Sound Weeks Gestation 0 Eighteen To Twenty Week Monico Update Ultra Sound Date Fundal Height At Umbil Quickening Date Ultra Sound Latest Weeks Gestation Final Monico Confirmed By Final Monico Confirmed Date Final Monico Date Ultra Sound Latest Days Gestation 0 0 Menstrual History Last Menstrual Date Menses Monthly On Bcp Conception Prior Menses Frequency Hcg Plus Date Menarche Onset Age Delivery Information Delivery Date Delivery Type Labor Anesthesia Weeks Gestation Incision Type Labor Labor Length Hrs Delivered By Post Complications Tubal Sterilization Discharge Date Comments 8 38 Discharge Information Feeding Method Contraceptive Method Maternal HG B and HCT Levels Ob Episode Information Episode Created Date Number of Fetuses Patient Bloodtype Patient rh Status Prepregnancy Weight lbs Domestic Partner Domestic Partner Phone Father Name Deputy Prosecuting Attorney Status 06/08/19 21 1 CLOSED Fetus Data First Name Last Name Admitted to NICU Weight (g) Sex Living Outcome Pediatric Complications Fetus ID Race Codes Race Delivery Type 4139.02 7 F Full Term 9191 Repeat Monico Calculation Initial Monico Date Initial Exam Date Initial Exam Provider Initial Ultrasound Date Last Menstrual Period Date Ultra Sound Weeks Gestation 0 Eighteen To Twenty Week [place] Update Ultra Sound Date Fundal Height At Umbil Quickening Date Ultra Sound Latest Weeks Gestation Final Monico Confirmed By Final Monico Confirmed Date Final Monico Date Ultra Sound Latest Days Gestation 0 0 Menstrual History Last Menstrual Date Menses Monthly On Bcp Conception Prior Menses Frequency Hcg Plus Date Menarche Onset Age Delivery Information Delivery Date Delivery Type Labor Anesthesia Weeks Gestation Incision Type Labor Labor Length Hrs Delivered By Post Complications Tubal Sterilization Discharge Date Comments 0 38 Discharge Information Feeding Method Contraceptive Method Maternal HG B and HCT Levels
--- OUTSIDE RECORDS SUMMARY | 2024-08-30 08:29 | XMS_ITS | Encounter Summary ---
Author Organization [facility] Healthcare Address [address] [place] [address] Care Team Providers Care Metallic Yarn Slitting Machine Operator Name Role Phone Masood Pederson MD Primary Care Provider [phone] Encounter Details Date Type Department Care Team (Late st Contact Info) Description 08/13/2024 Results [facility]Up [facility] [address] [address] Masood Pederson MD [address] [place] [id number] Lipid panel, CBC with auto differential, Comprehensive metabolic panel, Additional followed-up results: 2 Social History Tobacco Use Types Packs/Day Years Used Date Smoking Tobacco: Never Smokeless Tobacco: Never Alcohol Use Standard Drinks/Week Comments No 0 [...] on file Legal 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
--- OUTSIDE RECORDS SUMMARY | 2024-08-30 08:29 | XMS_ITS | Referral Summary ---
Author Organization [address] Address [address] [place] [address] Care Team Providers Care Language Arts Teacher Name Role Phone Masood Jhaveri MD Primary Care Provider [phone] Encounters Date Type Department Care Team Description 08/13/2024 Results [facility] [address] [address] Masood Jhaveri MD Lipid panel, CBC with auto differential, Comprehensive metabolic panel, Additional followed-up results: 2 08/13/2024 9:00 AM CDT Office Visit [facility] [address] [place] [address] Masood Jhaveri MD Menstrual migraine without status migrainosus, not intractable (Primary Dx); Colon cancer screening; Encounter for screening mammogram for malignant neoplasm of breast; Class 1 obesity due to excess calories without serious comorbidity with body mass index (BMI) of 32.0 to 32.9 in adult; Perimenopause 08/07/2024 8:25 AM CDT Lab [facility] [address] [place] [address] Iron deficiency anemia due to chronic blood loss 06/14/2024 3:45 PM CDT Office Visit [facility] Primary Care at [address] [place] [id number] Masood Jhaveri MD Allergic conjunctivitis of both eyes (Primary Dx) from Last 3 Months Allergies No known active allergies Medications SUMAtriptan (IMITREX) 50 mg tabletIndications :Migraine Take 1 tablet (50 mg total) by mouth once as needed for migraine May repeat after 2 hours. 27 tablet 4 Active estradioL (VIVELLE-DOT) 0.05 mg/24 hr APPLY 1 PATCH TOPICALLY TWICE A WEEK Active progesterone (PROMETRIUM) 200 mg capsule Take 1 capsule (200 mg total) by mouth daily Active azelastine (OPTIVAR) 0.05 % ophthalmic solutionIndicatio ns:Allergic Conjunctivitis Administer 1 drop into both eyes 2 (two) times a day 6 mL 1 Active Additional Information Patient not taking.Reported on [...] 04/15/2024 Assessment & Plan (04/15/2024 2:59 PM CORN HUSK BALER): Patient reports some low back pain; started [...] months Assessment & Plan (04/15/2024 2:59 PM CORN HUSK BALER): Stable, generally well controlled with current medication, continue HRT Continue sumatriptan 50 mg p.r.n., Topamax 25 mg Assessment & Plan (09/12/2022 4:32 PM CDT): Stable, well controlled; patient reports no migraines since starting menopause 4-5 months ago Continue to monitor, no medications needed at this time Assessment & Plan (04/15/2022 1:04 PM CORN HUSK BALER): Continues to have migraines with [place] menstrual [...] health Assessment & Plan (03/04/2021 2:02 PM CORN HUSK BALER): Stable, improving; patient reports she is generally [...] improving Assessment & Plan (03/04/2021 2:02 PM CORN HUSK BALER): Unclear etiology; may be labral tear verses [...] worsening premenstrual symptoms -contiune multivitamin with iron Immunizations Immunization Administration Dates Next Due Influenza, Unspecified 05/12/2024(Deferr ed: Patient Refused),10/26/2023(Deferred: Patient Refused),05/24/2023(Deferred: Patient Refused),12/22/2022(Deferred: Patient Refused),12/07/2022(Deferred: Patient Refused),11/20/2022(Deferred: Patient Refused),10/21/2022(Deferred: Patient Refused),11/20/2021(Deferred: Patient Refused),03/03/2021(Deferred: Patient Refused),02/21/2020(Deferred: Patient Refused) Social History Tobacco Use Types Packs/Day Years [...] on file Legal Sex Female 7:25 PM CORN HUSK BALER Gender Identity Not on file Sexual Orientation Not on file Last Filed Vital Signs Vital Sign Reading [...] 08/13/2024 8:46 AM CDT Plan of Treatment Not on file Procedures Procedure Name Priority Date/Time Associated Diagnosis [...] CDT) Stool DNA - Cologuard Negative Negative [facility] (CLIA #:[id number]) Comment: The Cologuard (TM) test was performed [...] screened with both Cologuard and colonoscopy. (Duy Kenney et al, N Engl J Med 2014;370(14):1286- 1297) The normal value (reference range) for this assay is negative. COLOGUARD RE-SCREENING RECOMMENDATION: Periodic colorectal cancer screening is an important part of preventive healthcare for asymptomatic individuals at average risk for colorectal cancer. Following a negative Cologuard result, the [place] Cancer Society and U.S. Multi-Society Task Force screening guidelines recommend a Cologuard re-screening interval of 3 years. References: [place] Cancer Society Guideline for Colorectal Cancer Screening: https://www.cancer.org/cancer/cttlr-ixxsrp-wjgiig/wshgxqaog-cxmrxfkdk-gmnsxuk/ac s-rec ommendations.html.; Kana DK, Annie ALEGRIA, Kristin MatosK, Colorectal Cancer Screening: Recommendations for Physicians and Patients from the U.S. Multi-Society Task Force on Colorectal Cancer Screening , Am J Gastroenterology 2017; 112:9343-9999. TEST DESCRIPTION: Composite algorithmic analysis of stool [...] (Duy Gutierrez al, N Engl J Med 2014;370(14):5245-5315.) Cologuard may produce a false negative or false positive result (no colorectal cancer or precancerous polyp present at colonoscopy follow up). A negative Cologuard test result does not guarantee the absence of CRC or advanced adenoma (pre-cancer). The current Cologuard screening interval is every 3 years. ([place] Cancer Society and U.S. Multi-Society Task Force). Cologuard performance data in a 10,000 patient pivotal study using colonoscopy as the reference method can be accessed at the following location: www.ICEX/results. Additional description of the Cologuard test process, warnings and precautions can be found at www.[employer].com. Stool 08/22/2024 6:44 AM CDT 08/24/2024 10:04 AM CDT us Masood Jhaveri MD LAB BODY FLUIDS AND STOOL S ORDERABLES Final Result [facility] (CLIA #:[id number]) [place] [place] [address] * eGFR (08/07/2024 8:38 AM CDT) eGFR [...] was last reviewed 2020. Testing performed by: [facility], [address] [place] [address], [id number] Blood 08/07/2024 8:38 AM CDT 08/07/2024 3:56 PM CDT us Masood Jhaveri MD LAB BLOOD ORDERABLES Shaina alcaraz Result [facility] ([place]) 1 [facility] Department [place] [address] * Differential, auto (08/07/2024 8:38 AM CDT) Neutrophil abs 2.29 1.50 - 6.50 K/cumm Comment:Testing performed by : [facility], [address] [place] [address]., [address] Imm gran abs 0.01 0.00 - 0.10 K/cumm [facility] ([place]) Comment:Testing performed by : [facility], [address] [place] [address]., [address] Lymphocyte abs 1.08 0.80 - 3.30 K/cumm [facility] ([place]) Comment:Testing performed by : [address], [address] Monocyte abs 0.30 0.20 - 0.80 K/cumm [facility] ([place]) Comment:Testing performed by : [facility], [address] [place] [address]., [address] Eosinophil abs 0.14 0.00 - 0.50 K/cumm [facility] ([place]) Comment:Testing performed by : [address], [address] Basophil abs 0.04 0.00 - 0.10 K/cumm [facility] ([place]) Comment:Testing performed by : [facility], [address] [place] [address]., [address] Neutrophil pct 59.3 % [facility] ([place]) Comment: Interpretive Data Percent cell count reference ranges are not reported, since discordance with absolute values may lead to misinterpretation of CBC data. Current Interpretive Data was last revised on 2017. Testing performed by: [facility], [address] [place] [address]., [address] Imm gran pct 0.3 % [facility] ([place]) Comment: Interpretive Data Percent cell count reference ranges are not reported, since discordance with absolute values may lead to misinterpretation of CBC data. Current Interpretive Data was last revised on 2017. Testing performed by: [facility], [address] [place] [address]., [address] Lymphocyte pct 28.0 % [facility] ([place]) Comment: Interpretive Data Percent cell count reference ranges are not reported, since discordance with absolute values may lead to misinterpretation of CBC data. Current Interpretive Data was last revised on 2017. Testing performed by: [facility], [address] [place] [address]., [address] Monocyte pct 7.8 % [facility] ([place]) Comment: Interpretive Data Percent cell count reference ranges are not reported, since discordance with absolute values may lead to misinterpretation of CBC data. Current Interpretive Data was last revised on 2017. Testing performed by: [facility], [address] [place] [address]., [address] Eosinophil pct 3.6 % [facility] ([place]) Comment: Interpretive Data Percent cell count reference ranges are not reported, since discordance with absolute values may lead to misinterpretation of CBC data. Current Interpretive Data was last revised on 2017. Testing performed by: [address] [address] Basophil pct 1.0 % [facility] ([place]) Comment: Interpretive Data Percent cell count reference ranges are not reported, since discordance with absolute values may lead to misinterpretation of CBC data. Current Interpretive Data was last revised on 2017. Testing performed by: [address] [address] Blood 08/07/2024 8:38 AM CDT 08/07/2024 3:46 PM CDT Masood Jhaveri MD LAB BLOOD ORDERABLES Shaina lissa Result [facility] ([place]) [facility] Department [place] [address] * (ABNORMAL) CBC with auto differential (08/07/2024 8:38 AM CDT) WBC 3.86 3.80 - 9.90 K/cumm Comment:Testing performed by : [facility], [address] [place] [address], [address] Hgb 13.4 11.9 - 15.5 g/dL [facility] ([place]) Comment:Testing performed by : [address], [address] Hct 43.5 35.6 - 45.5 % [facility] ([place]) Comment:Testing performed by : [facility], [address] [place] [address], [address] Plt 216 150 - 400 K/cumm [facility] ([place]) Comment:Testing performed by : [address], [address] MPV 11.4 9.1 - 12.3 fL [facility] ([place]) Comment:Testing performed by : [address], [address] RBC 4.73 3.90 - 5.20 M/cumm [facility] ([place]) Comment:Testing performed by : [address], [address] MCV 92.0 81.3 - 96.4 fL [facility] ([place]) Comment:Testing performed by : [address], [address] MCH 28.3 27.1 - 33.3 pg [facility] ([place]) Comment:Testing performed by : [address], [address] MCHC 30.8(L) 32.3 - 35.7 g/dL [facility] ([place]) Comment:Testing performed by : [facility], [address] [place] [address]., [address] RDW CV 15.5(H) 11.1 - 14.9 % [facility] ([place]) Comment:Testing performed by : [facility], [address] [place] [address], [address] RDW SD 52.8(H) 35.7 - 48.1 fL [facility] ([place]) Comment:Testing performed by : [facility], [address] [place] [address], [address] NRBC abs 0.00 0.00 - 0.01 K/cumm [facility] ([place]) Comment:Testing performed by : [facility], [address] [place] [address], [address] Blood 08/07/2024 8:38 AM CDT 08/07/2024 3:46 PM CDT Masood Jhaveri MD LAB BLOOD ORDERABLES Shaina alcaraz Result [facility] ([place]) 1 [facility] Department [place] [address] * Lipid panel (08/07/2024 8:38 AM CDT) [...] last revised on 2017. Testing performed by: [facility], [address] [place] [address], [address] Triglycerides 63 <=149 mg/dL [facility] ([place]) [...] last revised on 2017. Testing performed by: [facility], [address] [place] [address]., [address] HDL 74 >=40 mg/dL [facility] ([place]) [...] last revised on 2017. Testing performed by: [facility], [address] [place] [address]., [address] LDL, calculated 95 <=129 mg/dL [facility] ERNANDEZ [...] 3. Dariusz Fitzgerald et al. KRISTA Cardiol. 2020 June 20;5(5):540-548. doi: 10.1001/[email or web address].2020.0013 Current Interpretive Data was last revised on 2023. Testing performed by: [facility], [address] [place] [address]., [address] Non-HDL Cholesterol 107 mg/dL [facility] ([place]) [...] last revised on 2017. Testing performed by: [address] [address] Chol/HDL ratio 2 [facility]ESSE ERNANDEZ ([place]) Comment:Testing performed by : [facility], [address] [place] [address]., [address] Blood 08/07/2024 8:38 AM CDT 08/07/2024 3:46 PM CDT Masood Jhaveri MD LAB BLOOD ORDERABLES Shaina alcaraz Result [facility] ([place]) 1 [facility] Department [place] [address] * (ABNORMAL) Comprehensive metabolic panel (08/07/2024 8:38 AM CDT) Sodium 139 135 - 145 mmol/L Comment:Testing performed by : [address] [address] Potassium, pl 4.0 3.3 - 4.9 mmol/L [facility] ([place]) Comment:Testing performed by : [address] [address] Chloride 107 97 - 110 mmol/L [facility] ([place]) Comment:Testing performed by : [address] [address] CO2 23 22 - 32 mmol/L [facility] ([place]) Comment:Testing performed by : [address], [address] Anion gap 9 2 - 15 mmol/L [facility] ([place]) Comment:Testing performed by : [address], [address] BUN 14 6 - 25 mg/dL [facility] ([place]) Comment:Testing performed by : [address], [address] Creatinine 0.71 0.60 - 1.10 mg/dL [facility] ([place]) Comment:Testing performed by : [address], [address] Glucose 87 70 - 199 mg/dL [facility] ([place]) Comment: Interpretive Data Fasting glucose >/= 126 [...] was last revised 2022. Testing performed by: [address], [address] Calcium 9.4 8.5 - 10.3 mg/dL [facility] ([place]) Comment:Testing performed by : [address], [address] Bilirubin, total 0.3 0.1 - 1.2 mg/dL [facility] ([place]) Comment:Testing performed by : [address], [address] Protein, pl 7.0 6.5 - 8.5 g/dL [facility] ([place]) Comment:Testing performed by : [address], [address] Albumin 4.3 3.5 - 5.0 g/dL [facility] ([place]) Comment:Testing performed by : [facility] [address] [place] [address]., [address] Alk phos 39(L) 40 - 130 Units/L [facility] ([place]) Comment:Testing performed by : [facility], [address] [place] [address]., [address] ALT 34 7 - 45 Units/L [facility] ([place]) Comment:Testing performed by : [facility], [address] [place] [address], [address] AST 28 10 - 45 Units/L [facility] Comment:Testing performed by : [facility], [address] [place] [address], [address] Blood 08/07/2024 8:38 AM CDT 08/07/2024 3:46 PM CDT us Masood Jhaveri MD LAB BLOOD ORDERABLES Shaina l Result Performing Organization Address City/[facility]/ZIP Co de Phone Number [facility] ([place]) [address] [facility] [place] [address] * Hepatitis C antibody Blood (08/22/2023 8:34 [...] last revised on 2019. Testing performed by: [facility], [address] [place] [address]., [address] Blood 08/22/2023 8:34 AM CDT 08/22/2023 12:49 PM CDT us Jenni Arango NP LAB MICROBIOLOGY - GENERAL ORDER MARIELA Final Result [facility] ([place]) 1 [facility] [place] [address] * Screening Mammogram Bilateral W Avinash (09/08/2021 1:18 PM CDT) Anatomical Region Laterality Modality Breast Bilateral Mammography 09/08/2021 1:2 7 PM CDT Impressions 09/08/2021 1:27 PM CDT [...] no suspicious finding either breast on mammogram. Maosod Jhaveri MD IMG MAMMO PROCEDURES Shaina alcaraz Result from Last 3 Months or Most Recently Relevant to Health Maintenance Insurance [facility] [id number] [facility] [id number] Care Teams Language Arts Teacher Relationship Specialty Start Date End Date Masood Jhaveri MD [address] [place] [address] PCP - General 03/03/21
== END 2024-08-30 08:23 | disposition home or self-care (01) ==
LOC: ANHIMG 08:26
PROVIDERS: PCP Hospitalist; Visit Provider Hospitalist
DX: Z12.31 Encounter for screening mammogram for malignant neoplasm of breast (principal)
CPT/HCPCS: 77063; 77067